=== PATIENT | male | born 1960 | race Caucasian/White ===

== ENCOUNTER 2023-07-20 11:51 | Emergency (ER) | payer MEDICARE, SELFPAY ==
--- NOTE | ~2023-07-20 | CT_ITS ---
Non-contrast CT scan of the Abdomen and Pelvis Clinical indication: UTI, hematuria Technique: 2.5 mm axial scans were obtained through the abdomen and pelvis without intravenous or or al contrast. Dose reduction technique was used on this scan by utilizing automated exposure control a nd iterative reconstruction technique. The dose-length product (DLP) was 498.17 mGy-cm. Findings: Images through the lung bases reveal no abnormalities. There is asymmetric right perinephric stranding. No hydronephrosis, renal, or ureteral stones seen on either side. There is mild stranding at the right ureter as well. The liver, spleen, pancreas, gallbladder, and adrenals appear normal. There is no aortic aneurysm. There is no evidence of bowel obstruction. Normal appendix. Images through the pelvis were performed. There is no evidence of ascites or lymphadenopathy. Urinary bladder unremarkable. Prostate gland and seminal vesicles are unremarkable. Impression: Asymmetric right perinephric stranding. Consider pyelonephritis versus recently passed stone. No ston es seen currently. No hydronephrosis. Consider contrast enhanced CT to further evaluate for pyeloneph ritis, as indicated. Reviewed, dictated and finalized at [facility]. [employer] Impression: Asymmetric right perinephric stranding. Consider pyelonephritis versus recently passed stone. No stones seen currently. No hydronephrosis. Consider contrast e nhanced CT to further evaluate for pyelonephritis, as indicated.
[2023-07-20 12:00] VITALS: BP 131/82; PULSE 87; RESP 16; TEMP 37; O2SAT 97
[2023-07-20 12:29] LABS: Appearance Urine Slightly Cloudy (Clear); Bilirubin Urine Negative (Negative); Blood Urine 2+ (Negative); Color Urine Yellow (Yellow); Glucose Urine UA 3+ mg/dL (Negative); Ketones Urine 2+ mg/dL (Negative); Nitrate Urine Positive (Negative); Protein Urine 2+ mg/dL (Negative); Specific Grav Ur 1.015 (1.001-1.035); Urobilinogen Urine 0.2 mg/dL (<2.0)
[2023-07-20 12:30] LABS: Add Urine Microscopic? YES; Leukocyte Esterase Ur Trace LEU/UL (Negative)
--- NOTE | 2023-07-20 13:38 | ED.MALEGU ---
HPI - Male Genitourinary General Chief complaint: Urogenital-Male <Anne Rasmussen PA-C - Last Filed: 07/20/23 17:47> Stated complaint: fever, chills <Anne Rasmussen PA-C - Last Filed: 07/20/23 17:47> Time Seen by Provider: 07/20/23 12:14 <Anne Rasmussen PA-C - Last Filed: 07/20/23 17:47> History of Present Illness HPI Narrative: 63-year-old male reports for evaluation for dysuria, urinary tension, chills and subjective fever. The patient states 9 days ago, he began suddenly having dysuria and difficulty emptying his bladder so 9 days ago. Stents those sensations resolved around 2 days after onset of symptoms, however on day 3 he began developing headaches, chills and subjective fevers. He reports 1 episode of emesis a few days ago, none since. He denies abdominal pain, scrotal edema or pain, penile rashes or discharge, concern for STDs, back pain or flank pain. <Anne Rasmussen PA-C - Last Filed: 07/20/23 17:47> Related Data Allergies/Adverse reactions: Allergies Allergy/AdvReac Type Severity Reaction Status Date / Time Penicillins Allergy Mild Hives Verified 07/20/23 14:03 <Anne Rasmussen PA-C - Last Filed: 07/20/23 17:47> Review of Systems Review of Systems: CONSTITUTIONAL: See HPI EYES: Denies visual changes, redness, or discharge. ENT: Denies rhinorrhea, congestion, sore throat, or otalgia. CARDIOVASCULAR: Denies chest pain, palpitations, or edema. RESPIRATORY: Denies cough or dyspnea. GASTROINTESTINAL: See HPI GENITOURINARY: See HPI SKIN: Denies rash or itching. MUSCULOSKELETAL: Denies back pain, joint pain, or myalgia. NEUROLOGIC: Denies headache, numbness, or weakness. PSYCHIATRIC: Denies anxiety or depression. <MARIA ANTONIA Shelton Last Filed: 07/20/23 17:47> Exam Narrative: GENERAL: Well-appearing, well-nourished, and in no acute distress. Patient resting comfortably in exam bed. He is pleasant and conversational. Nontoxic appearing. HEAD: Normocephalic, atraumatic. EYES: PERRLA and EOMI. ENT: Nares clear, no rhinorrhea or epistaxis. Mucous membranes moist. NECK: Supple. CHEST: Clear to auscultation. No respiratory distress. HEART: Regular rate and rhythm. No murmur heard. Normal peripheral pulses. ABDOMEN: Soft, nontender, nondistended, normal active bowel sounds. No guarding, rebound or rigidity. No CVA tenderness. EXTREMITIES: Normal range of motion. No edema. SKIN: Warm, dry, no rash. NEURO: No focal deficits. Alert and oriented x3 <Anne Rasmussen PA-C - Last Filed: 07/20/23 17:47> Course [employer]/PA Physician Supervision I agree with midlevel documentation; I performed the medical decision making component of this evaluation. <Bárbara Garcia MD - Last Filed: 07/20/23 18:43> Vital Signs Vital signs: Vital Signs Temperature 98.6 F 07/20/23 12:00 Pulse Rate 87 07/20/23 12:00 Respiratory Rate 16 07/20/23 12:00 Blood Pressure 131/82 07/20/23 12:00 Pulse Oximetry 97 07/20/23 12:00 Oxygen Delivery Room Air 07/20/23 12:00 Temperature 98.3 F 07/20/23 17:21 Pulse Rate 83 07/20/23 17:21 Respiratory Rate 14 07/20/23 17:21 Blood Pressure 149/78 H 07/20/23 17:21 Pulse Oximetry 98 07/20/23 17:21 Oxygen Delivery Room Air 07/20/23 12:00 <Anne Rasmussen PA-C - Last Filed: 07/20/23 17:47> Vital Signs Temperature 98.6 F 07/20/23 12:00 Pulse Rate 87 07/20/23 12:00 Respiratory Rate 16 07/20/23 12:00 Blood Pressure 131/82 07/20/23 12:00 Pulse Oximetry 97 07/20/23 12:00 Oxygen Delivery Room Air 07/20/23 12:00 Temperature 98.3 F 07/20/23 17:21 Pulse Rate 83 07/20/23 17:21 Respiratory Rate 14 07/20/23 17:21 Blood Pressure 149/78 H 07/20/23 17:21 Pulse Oximetry 98 07/20/23 17:21 Oxygen Delivery Room Air 07/20/23 12:00 <Bárbara Garcia MD - Last Filed: 07/20/23 18:43> MDM - Male Genitourinary MDM Narrative Medical decision making narrative:
--- NOTE | 2023-07-20 13:44 | PC.NURSE ---
Pt to CT scan via w/c at this time.
[2023-07-20] MEDS: ACETAMINOPHEN 500 MG TABLET 1000 MG PO (14:03)
[2023-07-20 14:06] LABS: Basophils Percent Auto 0.2 % (0.2-1.2); Eosinophils Absolute Auto 0.1 K/mm3 (0-0.3); Eosinophils Percent Auto 0.4 % (0-4.4); Hematocrit 43.3 % (42.0-52.0); Hemoglobin 14.1 g/dL (14.0-18.0); Immature Granulocyte Absolute 0.09 K/mm3 (0.00-0.031); Immature Granulocyte Percent A 0.5 % (0-0.5); Lymphocytes Absolute Auto 0.95 K/mm3 (0.9-3.2); Lymphocytes Percent Auto 5.2 % (18.3-44.2); Mean Corpuscular HGB Conc 32.6 g/dl (32-36); Mean Corpuscular Hemoglobin 28.2 pg (26-34); Mean Corpuscular Volume 86.6 fl (80-100); Mean Platelet Volume 9.3 fl (7.4-10.4); Monocytes Absolute Auto 1.2 K/mm3 (0.1-0.6); Monocytes Percent Auto 6.7 % (2.6-8.5); Platelet Count Result 299 k/mm3 (150-375); Red Cell Distribution Width 13.1 % (11.5-14.5); White Blood Count 18.3 K/mm3 (4.5-10.0)
[2023-07-20 14:18] VITALS: BP 127/81; PULSE 91; RESP 18; TEMP 36.9; O2SAT 98
[2023-07-20 14:18] LABS: Alanine Aminotransferase 87 U/L (6-50); Albumin Level 3.9 g/dL (3.5-5.1); Alkaline Phosphatase 183 U/L (38-126); Anion Gap 10 mmol/L (8-16); Aspartate Amino Transferase 59 U/L (17-59); Bilirubin,Total 0.9 mg/dL (0.2-1.3); Blood Urea Nitrogen 17 mg/dL (9-20); Calcium 9.8 mg/dL (8.4-10.2); Carbon Dioxide 28 mmol/L (22-30); Chloride 91 mmol/L (98-107); Estimated CRCL calculation 95 ml/min; Estimated Glomerular Filt Rate > 60; Glucose 397 mg/dL (65-110); Potassium 4.3 mmol/L (3.4-5.0); Sodium 129 mmol/L (137-145)
[2023-07-20] MEDS: SODIUM CHLORIDE 0.9% IV 1,000 ML 999 ML IV CONT ×2 (15:10→15:24)
[2023-07-20 15:14] LABS: Squamous Epithelial Cell Urine Rare /hpf (Few); WBC Clumps Urine Present /hpf; WBC Urine 51-100 /hpf (0-3)
[2023-07-20 15:15] LABS: Bacteria Urine 2+ /hpf; Mucus Urine Few /lpf
[2023-07-20 16:48] LABS: Anion Gap 11 mmol/L (8-16); Blood Urea Nitrogen 17 mg/dL (9-20); Calcium 8.4 mg/dL (8.4-10.2); Carbon Dioxide 22 mmol/L (22-30); Chloride 98 mmol/L (98-107); Estimated CRCL calculation 108 ml/min; Estimated Glomerular Filt Rate > 60; Glucose 334 mg/dL (65-110); Sodium 131 mmol/L (137-145)
[2023-07-20 16:52] LABS: Potassium 3.8 mmol/L (3.4-5.0)
[2023-07-20 17:21] VITALS: BP 149/78; PULSE 83; RESP 14; TEMP 36.8; O2SAT 98
== END 2023-07-20 17:23 | disposition home or self-care (01) ==
PROVIDERS: Emergency Medicine; Emergency Provider Physician Assistant; PCP Emergency Medicine
DX: N12 Tubulo-interstitial nephritis, not specified as acute or chronic (principal); R73.9 Hyperglycemia, unspecified; E87.1 Hypo-osmolality and hyponatremia
CPT/HCPCS: 36415; 74176; 80048; 80053; 81001; 85025; 96361; 96365; 99284; A9270; J0696; J7030

== ENCOUNTER → 2023-08-04 07:45 | Outpatient (CLI) | payer MEDICARE, SELFPAY ==
--- NOTE | ~2023-08-04 | US_ITS ---
Limited Abdominal Sonogram: Real-time sonographic imaging of the right upper quadrant was performed. Clinical History: Abnormal liver enzymes Findings: The liver appears mildly heterogeneous, with no evidence of mass lesion or bile duct dilat ation. Main portal vein demonstrates normal direction of flow. The gallbladder is well distended, and appears normal with no evidence of gallstone or wall thickening. The common bile duct measures 4 mm. The visualized pancreas, aorta, and IVC are unremarkable. Right kidney measures 10.4 cm in length, without evidence of hydronephrosis. Impression: Possible diffuse fatty infiltration of liver. Reviewed, dictated and finalized at location M. DESIGN ENGINEER Impression: Possible diffuse fatty infiltration of liver.
== END ==
PROVIDERS: PCP Emergency Medicine; Visit Provider Emergency Medicine
DX: R74.8 Abnormal levels of other serum enzymes (principal)
CPT/HCPCS: 76705